=== PATIENT | female | born 1960 | race Two or more races ===

== ENCOUNTER 2021-03-02 21:57 | Inpatient (IN) | payer MEDICAID ==
[~2021-03-02] VITALS: Ht 154.9 cm; Wt 61.9 kg
[2021-03-02 23:32] LABS: Basophils # (auto) 0.1 10 ^3/uL (0-0.2); Basophils % (auto) 0.7 % (0.0-2.0); Eosinophils # (auto) 0.2 10 ^3/uL (0-0.8); Hematocrit 25.9 % (36.0-46.0); Hemoglobin 8.8 g/dL (12.2-16.2); Lymphocytes # (auto) 1.4 10 ^3/uL (0.4-5.4); Mean Corpuscular Volume 88.3 fL (80.0-100.0); Monocytes # (auto) 0.5 10 ^3/uL (0-1.3); Monocytes % (auto) 7.2 % (0.0-12.0); Neutrophils # (auto) 5.3 10 ^3/uL (1.6-8.6); Neutrophils % (auto) 70.1 % (37.0-80.0); Platelet Count (auto) 436 10^3/uL (140-450); Red Blood Cells 2.93 10^6/uL (4.0-5.20); Red Cell Distribution Width 12.1 % (11.8-14.3); White Blood Cell 7.5 10^3/uL (4.4-10.8)
[2021-03-03] LABS: Albumin 2.9 g/dL (3.4-5.0); Bilirubin, Total 0.2 mg/dL (0.2-1.0); Calcium 8.9 mg/dL (8.5-10.1); Total Protein 8.1 g/dL (6.4-8.2)
[2021-03-03] MEDS ORDERED: VANCOMYCIN 1GM/250ML 250 ML IV ONE (02:00)
[2021-03-03] MEDS ORDERED: ONDANSETRON HCL 4 MG/2 ML VIAL IV PRN (03:00)
[2021-03-03] MEDS ORDERED: DEXTROSE (50%) 50ML SYRG IV PRN (03:00)
[2021-03-03] MEDS ORDERED: HYDROcodone-ACET 5/325MG TAB PO PRN (03:00)
[2021-03-03] MEDS ORDERED: NITROGLYCERIN 0.4 MG SL TAB SL PRN (03:00)
[2021-03-03] MEDS ORDERED: MORPHINE SULF INJ 2 MG/ML SYRINGE 1ML IV PRN ×2 (03:00)
[2021-03-03 05:03] LABS: Urine Bacteria NONE SEEN /hpf (None Seen); Urine Blood Negative /uL (Negative); Urine Specific Gravity 1.014 (1.001-1.035); Urine WBC 9 /hpf (0 - 5)
[2021-03-03] MEDS ORDERED: PIPERACILLIN-TAZOB 3.375GM 100 ML IV SCH (06:00)
[2021-03-03] MEDS: ACCU-CHEK COMFORT CURVE STRIP VI SCH ×4 (06:25→21:38)
[2021-03-03] MEDS: InsuLIN REG 1unit/0.01ml Soln (100units/ml) SC SCH ×4 (06:30→21:43)
[2021-03-03 08:33] LABS: Basophils # (auto) 0.1 10 ^3/uL (0-0.2); Eosinophils # (auto) 0.2 10 ^3/uL (0-0.8); Lymphocytes # (auto) 1.6 10 ^3/uL (0.4-5.4); Platelet Count (auto) 397 10^3/uL (140-450); White Blood Cell 6.9 10^3/uL (4.4-10.8)
[2021-03-03 08:35] LABS: Basophils % (auto) 0.9 % (0.0-2.0); Eosinophils % (auto) 3.4 % (0.0-7.0); Hematocrit 24.7 % (36.0-46.0); Hemoglobin 8.3 g/dL (12.2-16.2); Mean Corpuscular Hemoglobin 29.7 pg (28.0-32.0); Mean Corpuscular Hgb Conc. 33.6 g/dL (32.0-36.0); Mean Corpuscular Volume 88.5 fL (80.0-100.0); Monocytes # (auto) 0.6 10 ^3/uL (0-1.3); Monocytes % (auto) 8.4 % (0.0-12.0); Neutrophils # (auto) 4.4 10 ^3/uL (1.6-8.6); Neutrophils % (auto) 64.3 % (37.0-80.0); Red Blood Cells 2.79 10^6/uL (4.0-5.20); Red Cell Distribution Width 12.1 % (11.8-14.3)
[2021-03-03 08:44] LABS: Albumin 2.5 g/dL (3.4-5.0); Calcium 8.6 mg/dL (8.5-10.1); Potassium 4.6 mmol/L (3.5-5.1)
[2021-03-03 08:47] LABS: BUN/Creatinine Ratio 45.2; Bilirubin, Total 0.2 mg/dL (0.2-1.0); Total Protein 7.2 g/dL (6.4-8.2)
[2021-03-03 09:00] VITALS: BP 121/70
[2021-03-03 09:30] VITALS: BP 121/70
[2021-03-03] MEDS ORDERED: ERTU15TA PO (10:26)
[2021-03-03] MEDS ORDERED: HYDR12.56 PO (10:26)
[2021-03-03] MEDS ORDERED: AMLO-489 PO (10:30)
[2021-03-03] MEDS ORDERED: CHOL20007 PO (10:30)
[2021-03-03] MEDS ORDERED: INSU1INJ19 SC (10:30)
[2021-03-03] MEDS ORDERED: METO25TA5 PO (10:30)
[2021-03-03] MEDS ORDERED: METF-370 PO (10:30)
[2021-03-03] MEDS ORDERED: BENA40TA8 PO (10:30)
[2021-03-03] MEDS ORDERED: FERR27TA2 PO (10:30)
[2021-03-03] MEDS ORDERED: VANCOMYCIN PER PHARMACY 0 MG IV SCH (12:15)
[2021-03-03 12:50] VITALS: BP 171/74
[2021-03-03] MEDS ORDERED: amLODIPine BESYLATE 5 MG TAB PO ONE (15:30)
[2021-03-03] MEDS ORDERED: hydrALAZINE HCL 20 MG/ML VL IV PRN (15:30)
[2021-03-03 16:56] VITALS: BP 161/72
[2021-03-03 20:00] VITALS: BP 119/70
[2021-03-03 22:00] VITALS: BP 133/66
[2021-03-03] MEDS ORDERED: VANCOMYCIN 1GM/250ML 250 ML IV SCH (22:00)
[2021-03-04] VITALS (7 sets, daily range): BP systolic 148–160; BP diastolic 72–95
[2021-03-04] MEDS: VANCOMYCIN 1GM/250ML 250 ML IV SCH (02:52)
[2021-03-04] MEDS: ACCU-CHEK COMFORT CURVE STRIP VI SCH ×4 (06:05→21:45)
[2021-03-04] MEDS: InsuLIN REG 1unit/0.01ml Soln (100units/ml) SC SCH ×4 (06:08→21:47)
[2021-03-04 06:11] LABS: Basophils # (auto) 0.1 10 ^3/uL (0-0.2); Eosinophils # (auto) 0.3 10 ^3/uL (0-0.8); Hemoglobin 9.6 g/dL (12.2-16.2); Monocytes # (auto) 0.4 10 ^3/uL (0-1.3); Nucleated Red Blood Cells % 0.1 %
[2021-03-04 06:13] LABS: Basophils % (auto) 1.2 % (0.0-2.0); Eosinophils % (auto) 4.4 % (0.0-7.0); Hematocrit 28.8 % (36.0-46.0); Lymphocytes # (auto) 1.4 10 ^3/uL (0.4-5.4); Lymphocytes % (auto) 24.2 % (10.0-50.0); Mean Corpuscular Hemoglobin 29.5 pg (28.0-32.0); Mean Corpuscular Hgb Conc. 33.4 g/dL (32.0-36.0); Mean Corpuscular Volume 88.3 fL (80.0-100.0); Monocytes % (auto) 6.4 % (0.0-12.0); Neutrophils # (auto) 3.7 10 ^3/uL (1.6-8.6); Neutrophils % (auto) 63.8 % (37.0-80.0); Platelet Count (auto) 486 10^3/uL (140-450); Red Blood Cells 3.26 10^6/uL (4.0-5.20); White Blood Cell 5.8 10^3/uL (4.4-10.8)
[2021-03-04 06:34] LABS: Calcium 9.3 mg/dL (8.5-10.1); Potassium 4.3 mmol/L (3.5-5.1)
[2021-03-04 06:39] LABS: BUN/Creatinine Ratio 42.7; Bilirubin, Total 0.3 mg/dL (0.2-1.0); Total Protein 8.1 g/dL (6.4-8.2)
[2021-03-04] MEDS ORDERED: ADENOSINE 52 MG in GIVE UN-DILUTED 0 ML IV STA (08:23)
[2021-03-04] MEDS: amLODIPine BESYLATE 5 MG TAB PO SCH (11:08)
[2021-03-05] MEDS: VANCOMYCIN 1GM/250ML 250 ML IV SCH (02:49)
[2021-03-05 05:00] VITALS: BP 158/75
[2021-03-05] MEDS: ACCU-CHEK COMFORT CURVE STRIP VI SCH ×4 (06:36→21:52)
[2021-03-05] MEDS: InsuLIN REG 1unit/0.01ml Soln (100units/ml) SC SCH ×4 (06:37→22:00)
[2021-03-05 07:02] LABS: Basophils # (auto) 0.1 10 ^3/uL (0-0.2); Basophils % (auto) 0.9 % (0.0-2.0); Eosinophils # (auto) 0.3 10 ^3/uL (0-0.8); Eosinophils % (auto) 4.1 % (0.0-7.0); Hematocrit 26.1 % (36.0-46.0); Lymphocytes # (auto) 1.8 10 ^3/uL (0.4-5.4); Lymphocytes % (auto) 23.8 % (10.0-50.0); Mean Corpuscular Hemoglobin 30.1 pg (28.0-32.0); Mean Corpuscular Hgb Conc. 34.4 g/dL (32.0-36.0); Mean Corpuscular Volume 87.3 fL (80.0-100.0); Monocytes # (auto) 0.7 10 ^3/uL (0-1.3); Monocytes % (auto) 9.2 % (0.0-12.0); Neutrophils # (auto) 4.6 10 ^3/uL (1.6-8.6); Nucleated Red Blood Cells % 0.2 %; Platelet Count (auto) 396 10^3/uL (140-450); Red Blood Cells 2.99 10^6/uL (4.0-5.20); Red Cell Distribution Width 12.1 % (11.8-14.3); White Blood Cell 7.4 10^3/uL (4.4-10.8)
[2021-03-05 07:11] LABS: Albumin 2.7 g/dL (3.4-5.0); Calcium 8.4 mg/dL (8.5-10.1); Potassium 4.4 mmol/L (3.5-5.1)
[2021-03-05 07:16] LABS: BUN/Creatinine Ratio 43.7; Bilirubin, Total 0.3 mg/dL (0.2-1.0); Total Protein 7.4 g/dL (6.4-8.2)
[2021-03-05] MEDS: amLODIPine BESYLATE 5 MG TAB PO SCH (08:26)
[2021-03-05] MEDS: INSULIN LANTUS (GLARGINE) 1 /0.01ml (100units/ml) SC SCH (08:38)
[2021-03-05 08:47] VITALS: BP 155/78
[2021-03-05 09:56] LABS: INR 1.01 (0.9-1.15); Partial Thromboplastin Time 25.1 sec (23.0-31.2)
[2021-03-05 12:40] VITALS: BP 149/69
[2021-03-05 16:32] VITALS: BP 156/80
[2021-03-05] MEDS ORDERED: cefTRIAXone 1GM/50ML D5W 50 ML IV ONE (17:15)
[2021-03-05] MEDS ORDERED: LISINOPRIL 20 MG TAB PO ONE (17:30)
[2021-03-05 20:00] VITALS: BP 146/73
[2021-03-05 22:00] VITALS: BP 146/73
[2021-03-06] MEDS: VANCOMYCIN 1GM/250ML 250 ML IV SCH (03:00)
[2021-03-06 05:00] VITALS: BP 146/70
[2021-03-06 06:23] LABS: Basophils # (auto) 0.1 10 ^3/uL (0-0.2); Basophils % (auto) 0.9 % (0.0-2.0); Eosinophils # (auto) 0.3 10 ^3/uL (0-0.8); Eosinophils % (auto) 5.3 % (0.0-7.0); Hematocrit 27.5 % (36.0-46.0); Hemoglobin 9.3 g/dL (12.2-16.2); Lymphocytes # (auto) 1.5 10 ^3/uL (0.4-5.4); Lymphocytes % (auto) 23.6 % (10.0-50.0); Mean Corpuscular Hemoglobin 29.9 pg (28.0-32.0); Mean Corpuscular Hgb Conc. 33.9 g/dL (32.0-36.0); Monocytes # (auto) 0.5 10 ^3/uL (0-1.3); Monocytes % (auto) 7.5 % (0.0-12.0); Neutrophils # (auto) 3.9 10 ^3/uL (1.6-8.6); Neutrophils % (auto) 62.7 % (37.0-80.0); Platelet Count (auto) 416 10^3/uL (140-450); Red Blood Cells 3.12 10^6/uL (4.0-5.20); Red Cell Distribution Width 12.1 % (11.8-14.3); White Blood Cell 6.3 10^3/uL (4.4-10.8)
[2021-03-06] MEDS: ACCU-CHEK COMFORT CURVE STRIP VI SCH ×4 (06:36→21:33)
[2021-03-06] MEDS: InsuLIN REG 1unit/0.01ml Soln (100units/ml) SC SCH ×4 (06:37→21:32)
[2021-03-06 06:38] LABS: Potassium 4.6 mmol/L (3.5-5.1)
[2021-03-06 07:01] LABS: Albumin 2.8 g/dL (3.4-5.0); BUN/Creatinine Ratio 41.9; Bilirubin, Total 0.2 mg/dL (0.2-1.0); Calcium 8.5 mg/dL (8.5-10.1); Total Protein 7.6 g/dL (6.4-8.2)
[2021-03-06] MEDS: amLODIPine BESYLATE 5 MG TAB PO SCH (08:11)
[2021-03-06] MEDS: cefTRIAXone 1GM/50ML D5W 50 ML IV SCH (08:12)
[2021-03-06] MEDS: LISINOPRIL 20 MG TAB PO SCH (08:12)
[2021-03-06] MEDS: INSULIN LANTUS (GLARGINE) 1 /0.01ml (100units/ml) SC SCH (08:19)
[2021-03-06 09:00] VITALS: BP 148/80
[2021-03-06 13:00] VITALS: BP 133/71
[2021-03-06 16:37] VITALS: BP 135/75
[2021-03-06 22:22] VITALS: BP 149/74
[2021-03-07] MEDS: VANCOMYCIN 1GM/250ML 250 ML IV SCH (03:00)
[2021-03-07 05:05] VITALS: BP 147/70
[2021-03-07] MEDS: InsuLIN REG 1unit/0.01ml Soln (100units/ml) SC SCH ×4 (07:00→21:06)
[2021-03-07] MEDS: ACCU-CHEK COMFORT CURVE STRIP VI SCH ×4 (07:07→21:04)
[2021-03-07 07:19] LABS: Basophils # (auto) 0.1 10 ^3/uL (0-0.2); Basophils % (auto) 1.2 % (0.0-2.0); Eosinophils # (auto) 0.4 10 ^3/uL (0-0.8); Eosinophils % (auto) 5.5 % (0.0-7.0); Hematocrit 27.3 % (36.0-46.0); Hemoglobin 9.2 g/dL (12.2-16.2); Lymphocytes # (auto) 1.7 10 ^3/uL (0.4-5.4); Lymphocytes % (auto) 25.5 % (10.0-50.0); Mean Corpuscular Hemoglobin 29.7 pg (28.0-32.0); Mean Corpuscular Hgb Conc. 33.8 g/dL (32.0-36.0); Mean Corpuscular Volume 87.7 fL (80.0-100.0); Monocytes # (auto) 0.6 10 ^3/uL (0-1.3); Monocytes % (auto) 8.6 % (0.0-12.0); Neutrophils # (auto) 3.9 10 ^3/uL (1.6-8.6); Neutrophils % (auto) 59.2 % (37.0-80.0); Nucleated Red Blood Cells % 0.1 %; Platelet Count (auto) 391 10^3/uL (140-450); Red Blood Cells 3.11 10^6/uL (4.0-5.20); White Blood Cell 6.5 10^3/uL (4.4-10.8)
[2021-03-07 07:24] LABS: Albumin 2.8 g/dL (3.4-5.0); BUN/Creatinine Ratio 46.4; Calcium 8.6 mg/dL (8.5-10.1); Potassium 4.4 mmol/L (3.5-5.1)
[2021-03-07 07:27] LABS: Bilirubin, Total 0.2 mg/dL (0.2-1.0); Total Protein 7.4 g/dL (6.4-8.2)
[2021-03-07 07:52] VITALS: BP 150/71
[2021-03-07 08:00] VITALS: BP 150/71
[2021-03-07] MEDS: cefTRIAXone 1GM/50ML D5W 50 ML IV SCH (09:52)
[2021-03-07] MEDS: LISINOPRIL 20 MG TAB PO SCH (09:53)
[2021-03-07] MEDS: amLODIPine BESYLATE 5 MG TAB PO SCH (09:53)
[2021-03-07] MEDS: INSULIN LANTUS (GLARGINE) 1 /0.01ml (100units/ml) SC SCH (09:55)
[2021-03-07 12:00] VITALS: BP 119/70
[2021-03-07 16:00] VITALS: BP 139/69
[2021-03-07 22:00] VITALS: BP 123/70
[2021-03-08 00:50] VITALS: BP 138/72
[2021-03-08 01:05] VITALS: BP 138/73
[2021-03-08 03:28] VITALS: BP 136/72
[2021-03-08 05:00] VITALS: BP 152/84
[2021-03-08] MEDS: InsuLIN REG 1unit/0.01ml Soln (100units/ml) SC SCH ×2 (07:00→11:30)
[2021-03-08] MEDS: ACCU-CHEK COMFORT CURVE STRIP VI SCH ×2 (07:04→11:30)
[2021-03-08 07:35] LABS: Basophils # (auto) 0.1 10 ^3/uL (0-0.2); Basophils % (auto) 1.3 % (0.0-2.0); Eosinophils # (auto) 0.4 10 ^3/uL (0-0.8); Eosinophils % (auto) 5.4 % (0.0-7.0); Hematocrit 32.8 % (36.0-46.0); Hemoglobin 11.6 g/dL (12.2-16.2); Lymphocytes # (auto) 1.6 10 ^3/uL (0.4-5.4); Lymphocytes % (auto) 24.3 % (10.0-50.0); Mean Corpuscular Hemoglobin 30.7 pg (28.0-32.0); Mean Corpuscular Hgb Conc. 35.5 g/dL (32.0-36.0); Mean Corpuscular Volume 86.4 fL (80.0-100.0); Monocytes # (auto) 0.4 10 ^3/uL (0-1.3); Monocytes % (auto) 6.6 % (0.0-12.0); Neutrophils # (auto) 4.1 10 ^3/uL (1.6-8.6); Neutrophils % (auto) 62.4 % (37.0-80.0); Platelet Count (auto) 417 10^3/uL (140-450); Red Blood Cells 3.79 10^6/uL (4.0-5.20); White Blood Cell 6.6 10^3/uL (4.4-10.8)
[2021-03-08 07:52] LABS: Albumin 3.1 g/dL (3.4-5.0); Calcium 8.9 mg/dL (8.5-10.1); Potassium 4.6 mmol/L (3.5-5.1)
[2021-03-08 07:57] LABS: Bilirubin, Total 0.4 mg/dL (0.2-1.0); Total Protein 7.8 g/dL (6.4-8.2)
[2021-03-08 08:00] VITALS: BP 144/75
[2021-03-08] MEDS: cefTRIAXone 1GM/50ML D5W 50 ML IV SCH (09:47)
[2021-03-08] MEDS: LISINOPRIL 20 MG TAB PO SCH (09:49)
[2021-03-08] MEDS: amLODIPine BESYLATE 5 MG TAB PO SCH (09:50)
[2021-03-08] MEDS: INSULIN LANTUS (GLARGINE) 1 /0.01ml (100units/ml) SC SCH (09:53)
[2021-03-08] MEDS ORDERED: VANCOMYCIN 500 MG in D5W 5% 100 ML IV ONE (11:00)
[2021-03-08 12:00] VITALS: BP 144/73
== END 2021-03-08 15:45 | disposition left against medical advice (07) | DRG 344 ==
LOC: ER 22:04 → TELE 03-03 02:57 → TELE-CENTR 03-03 09:11
PROVIDERS: ADMIT Internal Medicine; ATTEND Internal Medicine
PROC: 30233N1 Transfusion of Nonautologous Red Blood Cells into Peripheral Vein, Percutaneous Approach (ICD-10-PCS; principal; 2021-03-08)
DX: E11.621 Type 2 diabetes mellitus with foot ulcer (principal); M86.8X6 Other osteomyelitis, lower leg; E11.22 Type 2 diabetes mellitus with diabetic chronic kidney disease; E11.40 Type 2 diabetes mellitus with diabetic neuropathy, unspecified; E78.5 Hyperlipidemia, unspecified; E86.9 Volume depletion, unspecified; I12.9 Hypertensive chronic kidney disease with stage 1 through stage 4 chronic kidney disease, or unspecified chronic kidney disease; N18.30 Chronic kidney disease, stage 3 unspecified; Z53.29 Procedure and treatment not carried out because of patient's decision for other reasons; Z20.822 Contact with and (suspected) exposure to COVID-19; E11.51 Type 2 diabetes mellitus with diabetic peripheral angiopathy without gangrene; D63.8 Anemia in other chronic diseases classified elsewhere; Z83.3 Family history of diabetes mellitus; Z82.49 Family history of ischemic heart disease and other diseases of the circulatory system; Z88.0 Allergy status to penicillin; Z90.49 Acquired absence of other specified parts of digestive tract
CPT/HCPCS: 36415; 71045; 73700; 78452; 80053; 80202; 81001; 82962; 85025; 85610; 85730; 86850; 86900; 86901; 86920; 87426; 93017; 93306; 93925; 93970; 96365; 96372; G0378; J0153; J0696; J1815; J7060